=== PATIENT | female | born 1940 | race African-American/Black ===

== ENCOUNTER → 2019-05-12 | Outpatient (CLI) | payer MEDICARE ==
[2019-05-12 16:01] LABS: Urine Blood Negative /uL (Negative); Urine Specific Gravity 1.014 (1.001-1.035)
== END | disposition home or self-care (01) ==
LOC: LAB 12:40
PROVIDERS: ATTEND Internal Medicine Cardiovascular Disease
DX: N39.0 Urinary tract infection, site not specified (principal)
CPT/HCPCS: 81003; 87086; 87088; 87186

== ENCOUNTER → 2019-10-10 | Outpatient (CLI) | payer MEDICARE ==
[2019-10-10 16:48] LABS: Urine Blood TRACE /uL (Negative); Urine Specific Gravity 1.014 (1.001-1.035)
== END | disposition home or self-care (01) ==
LOC: LAB 13:07
PROVIDERS: ATTEND Internal Medicine Cardiovascular Disease
DX: N39.0 Urinary tract infection, site not specified (principal)
CPT/HCPCS: 81003; 87086

== ENCOUNTER → 2019-10-18 | Outpatient (CLI) | payer MEDICARE | END | disposition home or self-care (01) | LOC: LAB 10:33 | PROVIDERS: ATTEND Internal Medicine Cardiovascular Disease | DX: N39.0 Urinary tract infection, site not specified (principal) | CPT/HCPCS: 87086 ==

== ENCOUNTER 2020-01-20 17:45 | Inpatient (IN) | payer MEDICARE, MEDICAID ==
[~2020-01-20] VITALS: Ht 170.2 cm; Wt 76.7 kg
[2020-01-20] MEDS ORDERED: cloNIDine HCL 0.1 MG TAB PO ONE ×2 (18:00→18:45)
[2020-01-20 19:11] LABS: Albumin 3.7 g/dL (3.4-5.0); BUN/Creatinine Ratio 25.5; Calcium 8.7 mg/dL (8.5-10.1); Magnesium 1.5 mg/dL (1.6-2.6); Potassium 4.8 mmol/L (3.5-5.1)
[2020-01-20 19:16] LABS: Bilirubin, Total 0.2 mg/dL (0.2-1.0); Total Protein 8.1 g/dL (6.4-8.2)
[2020-01-20 19:25] LABS: Basophils # (auto) 0.1 10 ^3/uL (0-0.2); Basophils % (auto) 1.1 % (0.0-2.0); Eosinophils # (auto) 0.2 10 ^3/uL (0-0.8); Eosinophils % (auto) 1.7 % (0.0-7.0); Hematocrit 38.1 % (36.0-46.0); Hemoglobin 12.4 g/dL (12.2-16.2); Lymphocytes # (auto) 1.3 10 ^3/uL (0.4-5.4); Lymphocytes % (auto) 14.2 % (10.0-50.0); Mean Corpuscular Hgb Conc. 32.6 g/dL (32.0-36.0); Mean Corpuscular Volume 95.1 fL (80.0-100.0); Monocytes # (auto) 0.5 10 ^3/uL (0-1.3); Neutrophils # (auto) 6.8 10 ^3/uL (1.6-8.6); Nucleated Red Blood Cells % 0.1 %; Platelet Count (auto) 312 10^3/uL (140-450); Red Cell Distribution Width 14.1 % (11.8-14.3); White Blood Cell 8.9 10^3/uL (4.4-10.8)
[2020-01-20] MEDS ORDERED: ASPirin 81 mg TAB PO ONE (19:30)
[2020-01-20] MEDS ORDERED: CLOPIDOGREL BISULFATE 75 MG TAB PO ONE (19:30)
[2020-01-20 19:31] LABS: INR 0.99 (0.9-1.15); Partial Thromboplastin Time 31.3 sec (23.0-31.2)
[2020-01-20] MEDS ORDERED: MORPHINE SULF INJ 2 MG/ML SYRINGE 1ML IV PRN (21:15)
[2020-01-20] MEDS ORDERED: DOCUSATE CALCIUM 240 MG CAP PO PRN (21:15)
[2020-01-20] MEDS ORDERED: LORazepam 0.5 MG TAB PO PRN (21:15)
[2020-01-20] MEDS ORDERED: hydrALAZINE HCL 20 MG/ML VL IV PRN (21:15)
[2020-01-20] MEDS ORDERED: NITROGLYCERIN 0.4 MG SL TAB SL PRN (21:15)
[2020-01-20 21:24] LABS: Urine Bacteria NONE SEEN /hpf (None Seen); Urine Blood Negative /uL (Negative); Urine WBC 2 /hpf (0 - 5)
[2020-01-20 21:39] LABS: Amphetamine Screen, Urine NEGATIVE (NEGATIVE); Barbiturate Scree,Urine NEGATIVE (NEGATIVE); Benzodiazephine Screen, Urine NEGATIVE (NEGATIVE); Cannabinoid Screen, Urine NEGATIVE (NEGATIVE); Cocaine Screen, Urine NEGATIVE (NEGATIVE); Opiate Scree,Urine NEGATIVE (NEGATIVE); Phencyclidine Screen, Urine NEGATIVE (NEGATIVE)
[2020-01-20 21:45] LABS: Alcohol, Urine < 3.0 mg/dL (0-10)
[2020-01-21 05:54] LABS: Basophils # (auto) 0 10 ^3/uL (0-0.2); Basophils % (auto) 0.7 % (0.0-2.0); Eosinophils # (auto) 0.2 10 ^3/uL (0-0.8); Eosinophils % (auto) 2.4 % (0.0-7.0); Hematocrit 35.9 % (36.0-46.0); Hemoglobin 11.7 g/dL (12.2-16.2); Lymphocytes # (auto) 1.2 10 ^3/uL (0.4-5.4); Lymphocytes % (auto) 17.4 % (10.0-50.0); Mean Corpuscular Hgb Conc. 32.6 g/dL (32.0-36.0); Mean Corpuscular Volume 95.2 fL (80.0-100.0); Monocytes # (auto) 0.6 10 ^3/uL (0-1.3); Monocytes % (auto) 8.4 % (0.0-12.0); Neutrophils # (auto) 4.9 10 ^3/uL (1.6-8.6); Neutrophils % (auto) 71.1 % (37.0-80.0); Platelet Count (auto) 279 10^3/uL (140-450); Red Blood Cells 3.78 10^6/uL (4.0-5.20)
[2020-01-21 06:14] LABS: Potassium 4.4 mmol/L (3.5-5.1)
[2020-01-21 06:25] LABS: Albumin 3.4 g/dL (3.4-5.0); BUN/Creatinine Ratio 27.8; Bilirubin, Total 0.2 mg/dL (0.2-1.0); Calcium 8.8 mg/dL (8.5-10.1); Magnesium 1.8 mg/dL (1.6-2.6); Phosphorus 3.2 mg/dL (2.5-4.90); Total Protein 7.7 g/dL (6.4-8.2)
[2020-01-21 06:30] LABS: INR 1.02 (0.9-1.15); Partial Thromboplastin Time 30.5 sec (23.0-31.2)
[2020-01-21] MEDS ORDERED: PANTOPRAZOLE 40 MG TAB PO SCH ×2 (10:00)
[2020-01-21] MEDS ORDERED: LOSARTAN POTASSIUM 50 MG TAB PO SCH (16:00)
[2020-01-22] MEDS ORDERED: ONDANSETRON HCL 4 MG/2 ML VIAL IV ONE
[2020-01-22 06:46] VITALS: BP 183/80
[2020-01-22] MEDS ORDERED: AZILSARTAN PO SCH (10:00)
[2020-01-22] MEDS ORDERED: [UNRECOGNIZED DRUG - OTHER] PO SCH (10:00)
[2020-01-22] MEDS ORDERED: amLODIPine BESYLATE 5 MG TAB PO SCH (10:00)
[2020-01-22] MEDS ORDERED: DOXAZOSIN MESYL 2 MG TAB PO SCH (22:00)
== END 2020-01-22 08:29 | disposition left against medical advice (07) | DRG 281 ==
LOC: ER 17:45 → TELE 17:46
PROVIDERS: ADMIT Family Medicine; ATTEND Family Medicine
DX: I21.4 Non-ST elevation (NSTEMI) myocardial infarction (principal); I50.32 Chronic diastolic (congestive) heart failure; I13.0 Hypertensive heart and chronic kidney disease with heart failure and stage 1 through stage 4 chronic kidney disease, or unspecified chronic kidney disease; I16.0 Hypertensive urgency; E11.22 Type 2 diabetes mellitus with diabetic chronic kidney disease; E11.65 Type 2 diabetes mellitus with hyperglycemia; E03.9 Hypothyroidism, unspecified; N18.9 Chronic kidney disease, unspecified; Z53.29 Procedure and treatment not carried out because of patient's decision for other reasons; E87.5 Hyperkalemia; I70.0 Atherosclerosis of aorta; L81.6 Other disorders of diminished melanin formation; Z85.3 Personal history of malignant neoplasm of breast; Z98.51 Tubal ligation status; R51.9 Headache, unspecified
CPT/HCPCS: 36415; 70450; 71045; 80053; 80307; 81001; 82962; 83036; 83735; 83880; 84100; 84436; 84443; 84484; 85025; 85610; 85730; 93005; 96374; G0378; J2405

== ENCOUNTER 2020-06-21 12:10 | Inpatient (IN) | payer MEDICARE, MEDICAID ==
[~2020-06-21] VITALS: Ht 30.5 cm; Wt 72.0 kg
[2020-06-21 16:36] VITALS: BP 141/63
[2020-06-21 18:49] VITALS: BP 150/60
[2020-06-21] MEDS ORDERED: LABE100T4 PO ×2 (19:43)
[2020-06-21] MEDS ORDERED: GLIM4TAB42 PO (19:43)
[2020-06-21] MEDS ORDERED: NIFE90TA49 PO (19:43)
[2020-06-21] MEDS ORDERED: HYDR-4296 PO ×2 (19:46)
[2020-06-21] MEDS ORDERED: NITROGLYCERIN 0.4 MG SL TAB SL PRN (20:30)
[2020-06-21] MEDS ORDERED: MORPHINE SULF INJ 2 MG/ML SYRINGE 1ML IV PRN (20:30)
[2020-06-21] MEDS: SODIUM CHLORIDE 0.9% 1,000 ML IV SCH (20:49)
[2020-06-21 21:50] LABS: Basophils # (auto) 0 10 ^3/uL (0-0.2); Basophils % (auto) 0.1 % (0.0-2.0); Eosinophils # (auto) 0 10 ^3/uL (0-0.8); Eosinophils % (auto) 0.3 % (0.0-7.0); Hematocrit 26.3 % (36.0-46.0); Hemoglobin 8.8 g/dL (12.2-16.2); Lymphocytes # (auto) 0.6 10 ^3/uL (0.4-5.4); Lymphocytes % (auto) 4.5 % (10.0-50.0); Mean Corpuscular Hemoglobin 31.3 pg (28.0-32.0); Mean Corpuscular Hgb Conc. 33.4 g/dL (32.0-36.0); Mean Corpuscular Volume 93.8 fL (80.0-100.0); Monocytes # (auto) 0.6 10 ^3/uL (0-1.3); Monocytes % (auto) 4.6 % (0.0-12.0); Neutrophils # (auto) 12.5 10 ^3/uL (1.6-8.6); Neutrophils % (auto) 90.5 % (37.0-80.0); Platelet Count (auto) 285 10^3/uL (140-450); Red Cell Distribution Width 15.6 % (11.8-14.3); White Blood Cell 13.8 10^3/uL (4.4-10.8)
[2020-06-21 22:00] VITALS: BP 166/77
[2020-06-21] MEDS ORDERED: LABETALOL HCL 200 MG TAB PO SCH (22:00)
[2020-06-21] MEDS ORDERED: metroNIDAZOLE 500 MG TAB PO SCH (22:00)
[2020-06-21] MEDS ORDERED: hydrALAZINE HCL 25 MG TAB PO SCH (22:00)
[2020-06-21] MEDS ORDERED: GLIMEPIRIDE 2 MG TAB PO SCH (22:00)
[2020-06-21 22:06] LABS: Albumin 2.5 g/dL (3.4-5.0); Calcium 7.7 mg/dL (8.5-10.1); Potassium 3.2 mmol/L (3.5-5.1)
[2020-06-21 22:09] LABS: BUN/Creatinine Ratio 25.2; Bilirubin, Total 0.4 mg/dL (0.2-1.0); Total Protein 6.7 g/dL (6.4-8.2)
[2020-06-21 22:38] LABS: INR 1.01 (0.9-1.15); Partial Thromboplastin Time 28.5 sec (23.0-31.2)
[2020-06-22] VITALS (8 sets, daily range): BP systolic 136–181; BP diastolic 60–80
[2020-06-22] MEDS: cloNIDine 0.2 mg/24hr 7DAY PATCH TD SCH (04:26)
[2020-06-22] MEDS: metroNIDAZOLE 500MG/100ML 100 ML IV SCH ×3 (05:01→18:00)
[2020-06-22] MEDS: PIPERACILLIN-TAZO 4.5GM 100 ML IV SCH ×3 (06:01→22:15)
[2020-06-22] MEDS: SODIUM CHLORIDE 0.9% 1,000 ML IV SCH ×3 (09:26→20:49)
[2020-06-22] MEDS: NIFEdipine ER 30 MG TAB PO SCH (09:56)
[2020-06-22] MEDS: PANTOPRAZOLE 40 MG/10 ML VIAL INJ IV SCH (09:56)
[2020-06-22 10:19] LABS: Urine Bacteria MANY /hpf (None Seen); Urine Blood Negative /uL (Negative); Urine Budding Yeast LOADED /hpf (None Seen); Urine Specific Gravity 1.012 (1.001-1.035); Urine WBC 32 /hpf (0 - 5)
[2020-06-22] MEDS ORDERED: CHOLESTYRAMINE 4 GM POWDER PO SCH (11:00)
[2020-06-22] MEDS ORDERED: METOCLOPRAMIDE HCL 5MG/ml INJ 2ml VIAL IV PRN (11:45)
[2020-06-22] MEDS ORDERED: DEXTROSE (50%) 50ML SYRG IV PRN ×2 (12:00→15:45)
[2020-06-22] MEDS ORDERED: TPN PER PHARMACY 0 ML IV SCH (16:00)
[2020-06-22] MEDS ORDERED: InsuLIN REG 1unit/0.01ml Soln (100units/ml) SC SCH ×2 (17:00→22:00)
[2020-06-22] MEDS ORDERED: ACCU-CHEK COMFORT CURVE STRIP VI SCH (17:00)
[2020-06-22] MEDS: ACCU-CHEK COMFORT CURVE STRIP VI SCH ×2 (17:08→20:00)
[2020-06-22 17:31] LABS: Albumin 2.4 g/dL (3.4-5.0); Calcium 7.6 mg/dL (8.5-10.1); Magnesium 2.1 mg/dL (1.6-2.6); Potassium 3.2 mmol/L (3.5-5.1)
[2020-06-22 17:38] LABS: Bilirubin, Total 0.5 mg/dL (0.2-1.0); Phosphorus 2.1 mg/dL (2.5-4.90); Pre Albumin 15.8 mg/dL (20.0-40.0); Total Protein 6.5 g/dL (6.4-8.2)
[2020-06-22] MEDS: InsuLIN REG 1unit/0.01ml Soln (100units/ml) SC SCH ×2 (17:47→20:00)
[2020-06-22] MEDS ORDERED: POTASSIUM PHOSPHATE 44 MEQ in D5W 5% 250 ML IV ONE (18:00)
[2020-06-22] MEDS: AMINO ACID INFUSION IN D10W 1,000 ML IV NR (20:50)
[2020-06-22] MEDS ORDERED: OMNIPAQUE ORAL SOLN 500ml 12mg/ml PO ONE (22:29)
[2020-06-23] MEDS: metroNIDAZOLE 500MG/100ML 100 ML IV SCH ×5 (00:25→23:46)
[2020-06-23] MEDS: InsuLIN REG 1unit/0.01ml Soln (100units/ml) SC SCH ×7 (00:40→23:52)
[2020-06-23] MEDS: ACCU-CHEK COMFORT CURVE STRIP VI SCH ×7 (04:00→23:47)
[2020-06-23 04:59] VITALS: BP 147/56
[2020-06-23] MEDS: PIPERACILLIN-TAZO 4.5GM 100 ML IV SCH ×3 (05:23→21:49)
[2020-06-23 06:17] LABS: Albumin 2.2 g/dL (3.4-5.0); Calcium 7.3 mg/dL (8.5-10.1); Magnesium 1.8 mg/dL (1.6-2.6)
[2020-06-23 06:22] LABS: BUN/Creatinine Ratio 20.6; Bilirubin, Total 0.3 mg/dL (0.2-1.0); Phosphorus 1.8 mg/dL (2.5-4.90); Total Protein 5.9 g/dL (6.4-8.2)
[2020-06-23 06:27] LABS: Potassium 2.9 mmol/L (3.5-5.1)
[2020-06-23 08:00] VITALS: BP 137/50
[2020-06-23 08:30] VITALS: BP 137/50
[2020-06-23] MEDS: NIFEdipine ER 30 MG TAB PO SCH (09:53)
[2020-06-23] MEDS: PANTOPRAZOLE 40 MG/10 ML VIAL INJ IV SCH (09:55)
[2020-06-23] MEDS ORDERED: POTASSIUM CHL 20MEQ/100ML 100 ML IV ONE (11:00)
[2020-06-23] MEDS ORDERED: POTASSIUM CHL 20MEQ/100ML 100 ML IV SCH (11:15)
[2020-06-23] MEDS ORDERED: LIDOCAINE 1% (LOCAL ANESTH.) PF 5ml SDV ID ONE (11:30)
[2020-06-23] MEDS ORDERED: POTASSIUM PHOSPHATE 44 MEQ in D5W 5% 250 ML IV ONE (11:30)
[2020-06-23 12:30] VITALS: BP 145/59
[2020-06-23] MEDS ORDERED: LACTULOSE 20Gm/30ML SOLN PO ONE (12:30)
[2020-06-23 16:40] VITALS: BP 163/74
[2020-06-23] MEDS: AMINO ACID INFUSION IN D10W 1,000 ML IV NR (19:49)
[2020-06-23] MEDS ORDERED: TPN PER PHARMACY IV NR ×22 (20:00)
[2020-06-23] MEDS: SODIUM CHLORIDE 0.9% 1,000 ML IV SCH (20:00)
[2020-06-23] MEDS ORDERED: NIFEdipine ER 30 MG TAB PO ONE (21:15)
[2020-06-23] MEDS: SODIUM CHLOR 0.9% PF (SALINE LOCK) 10ML VIAL/SYR IV SCH (21:49)
[2020-06-23 22:00] VITALS: BP 183/71
[2020-06-24] MEDS: ACCU-CHEK COMFORT CURVE STRIP VI SCH ×6 (03:47→23:49)
[2020-06-24] MEDS: InsuLIN REG 1unit/0.01ml Soln (100units/ml) SC SCH ×6 (03:50→23:49)
[2020-06-24 05:14] VITALS: BP 169/76
[2020-06-24] MEDS: metroNIDAZOLE 500MG/100ML 100 ML IV SCH ×4 (05:28→23:49)
[2020-06-24] MEDS: PIPERACILLIN-TAZO 4.5GM 100 ML IV SCH ×3 (05:29→22:05)
[2020-06-24 05:36] LABS: Basophils # (auto) 0 10 ^3/uL (0-0.2); Lymphocytes # (auto) 0.8 10 ^3/uL (0.4-5.4); Neutrophils # (auto) 7.3 10 ^3/uL (1.6-8.6)
[2020-06-24 05:38] LABS: Basophils % (auto) 0.3 % (0.0-2.0); Eosinophils # (auto) 0.2 10 ^3/uL (0-0.8); Eosinophils % (auto) 1.8 % (0.0-7.0); Hematocrit 23.3 % (36.0-46.0); Hemoglobin 7.6 g/dL (12.2-16.2); Lymphocytes % (auto) 8.8 % (10.0-50.0); Mean Corpuscular Hemoglobin 33.4 pg (28.0-32.0); Mean Corpuscular Hgb Conc. 32.6 g/dL (32.0-36.0); Mean Corpuscular Volume 102.4 fL (80.0-100.0); Monocytes # (auto) 0.4 10 ^3/uL (0-1.3); Monocytes % (auto) 4.9 % (0.0-12.0); Neutrophils % (auto) 84.2 % (37.0-80.0); Platelet Count (auto) 228 10^3/uL (140-450); Red Blood Cells 2.27 10^6/uL (4.0-5.20); Red Cell Distribution Width 17.1 % (11.8-14.3); White Blood Cell 8.7 10^3/uL (4.4-10.8)
[2020-06-24 07:30] LABS: Magnesium 1.5 mg/dL (1.6-2.6)
[2020-06-24 07:34] LABS: Phosphorus 3.4 mg/dL (2.5-4.90)
[2020-06-24 07:35] LABS: Potassium 3.3 mmol/L (3.5-5.1)
[2020-06-24 07:36] LABS: Albumin 2.1 g/dL (3.4-5.0); BUN/Creatinine Ratio 18.6; Bilirubin, Total 0.3 mg/dL (0.2-1.0); Calcium 7.1 mg/dL (8.5-10.1); Total Protein 5.8 g/dL (6.4-8.2)
[2020-06-24 08:40] VITALS: BP 158/59
[2020-06-24] MEDS: SODIUM CHLOR 0.9% PF (SALINE LOCK) 10ML VIAL/SYR IV SCH ×2 (10:29→22:05)
[2020-06-24] MEDS: NIFEdipine ER 30 MG TAB PO SCH (10:30)
[2020-06-24] MEDS: PANTOPRAZOLE 40 MG/10 ML VIAL INJ IV SCH (10:30)
[2020-06-24] MEDS ORDERED: MAGNESIUM SULFATE 1GM/100ML 100 ML IV ONE (11:30)
[2020-06-24] MEDS ORDERED: POTASSIUM CHL 20MEQ/100ML 100 ML IV ONE (11:30)
[2020-06-24 12:30] VITALS: BP 165/83
[2020-06-24 16:40] VITALS: BP 146/57
[2020-06-24] MEDS ORDERED: TPN PER PHARMACY IV NR ×10 (20:00)
[2020-06-24] MEDS: SODIUM CHLORIDE 0.9% 1,000 ML IV SCH (20:09)
[2020-06-24 21:42] VITALS: BP 147/97
[2020-06-25] MEDS: ACCU-CHEK COMFORT CURVE STRIP VI SCH ×5 (04:15→19:56)
[2020-06-25] MEDS: InsuLIN REG 1unit/0.01ml Soln (100units/ml) SC SCH ×5 (04:17→20:00)
[2020-06-25 05:00] VITALS: BP 147/62
[2020-06-25] MEDS: metroNIDAZOLE 500MG/100ML 100 ML IV SCH ×2 (05:35→11:48)
[2020-06-25 05:39] LABS: Potassium 3.3 mmol/L (3.5-5.1)
[2020-06-25 05:47] LABS: Albumin 2.1 g/dL (3.4-5.0); BUN/Creatinine Ratio 19.8; Bilirubin, Total 0.2 mg/dL (0.2-1.0); Calcium 7.1 mg/dL (8.5-10.1); Magnesium 1.7 mg/dL (1.6-2.6); Phosphorus 1.8 mg/dL (2.5-4.90); Total Protein 5.9 g/dL (6.4-8.2)
[2020-06-25] MEDS: PIPERACILLIN-TAZO 4.5GM 100 ML IV SCH ×2 (06:00→14:18)
[2020-06-25 08:29] VITALS: BP 163/80
[2020-06-25] MEDS: SODIUM CHLOR 0.9% PF (SALINE LOCK) 10ML VIAL/SYR IV SCH ×2 (10:24→21:48)
[2020-06-25] MEDS: PANTOPRAZOLE 40 MG/10 ML VIAL INJ IV SCH (10:51)
[2020-06-25] MEDS: NIFEdipine ER 30 MG TAB PO SCH (10:51)
[2020-06-25 12:32] VITALS: BP 162/80
[2020-06-25] MEDS ORDERED: POTASSIUM PHOSPHATE 44 MEQ in D5W 5% 250 ML IV ONE (13:15)
[2020-06-25] MEDS ORDERED: MAGNESIUM SULFATE 1GM/100ML 100 ML IV ONE (13:15)
[2020-06-25] MEDS ORDERED: CHOLESTYRAMINE 4 GM POWDER PO ONE (16:45)
[2020-06-25] MEDS: POTASSIUM CHL 20MEQ/100ML 100 ML IV SCH ×3 (17:06→21:48)
[2020-06-25 17:30] VITALS: BP 161/69
[2020-06-25] MEDS: SODIUM CHLORIDE 0.9% 1,000 ML IV SCH (19:55)
[2020-06-25] MEDS ORDERED: TPN PER PHARMACY IV NR ×10 (20:00)
[2020-06-25 22:00] VITALS: BP 161/75
[2020-06-25] MEDS: CHOLESTYRAMINE 4 GM POWDER PO SCH (23:11)
[2020-06-26] MEDS: InsuLIN REG 1unit/0.01ml Soln (100units/ml) SC SCH ×6 (04:00→21:14)
[2020-06-26] MEDS: ACCU-CHEK COMFORT CURVE STRIP VI SCH ×6 (04:11→21:10)
[2020-06-26 05:00] VITALS: BP 156/74
[2020-06-26 05:52] LABS: Basophils # (auto) 0 10 ^3/uL (0-0.2); Basophils % (auto) 0.3 % (0.0-2.0); Eosinophils # (auto) 0.2 10 ^3/uL (0-0.8); Eosinophils % (auto) 2.2 % (0.0-7.0); Hematocrit 23.4 % (36.0-46.0); Hemoglobin 7.8 g/dL (12.2-16.2); Lymphocytes # (auto) 0.8 10 ^3/uL (0.4-5.4); Mean Corpuscular Hemoglobin 31.2 pg (28.0-32.0); Mean Corpuscular Hgb Conc. 33.4 g/dL (32.0-36.0); Mean Corpuscular Volume 93.4 fL (80.0-100.0); Monocytes # (auto) 0.6 10 ^3/uL (0-1.3); Monocytes % (auto) 5.8 % (0.0-12.0); Neutrophils # (auto) 8.4 10 ^3/uL (1.6-8.6); Neutrophils % (auto) 83.7 % (37.0-80.0); Platelet Count (auto) 253 10^3/uL (140-450); Red Blood Cells 2.51 10^6/uL (4.0-5.20); Red Cell Distribution Width 15.7 % (11.8-14.3); White Blood Cell 10.1 10^3/uL (4.4-10.8)
[2020-06-26 06:15] LABS: Albumin 2.1 g/dL (3.4-5.0); Calcium 7.4 mg/dL (8.5-10.1); Magnesium 2.1 mg/dL (1.6-2.6); Potassium 4.6 mmol/L (3.5-5.1)
[2020-06-26 06:19] LABS: Bilirubin, Total 0.2 mg/dL (0.2-1.0); Phosphorus 1.8 mg/dL (2.5-4.90); Total Protein 5.9 g/dL (6.4-8.2)
[2020-06-26 08:58] VITALS: BP 161/75
[2020-06-26] MEDS: SODIUM CHLOR 0.9% PF (SALINE LOCK) 10ML VIAL/SYR IV SCH ×2 (10:00→21:10)
[2020-06-26] MEDS: PANTOPRAZOLE 40 MG/10 ML VIAL INJ IV SCH (10:00)
[2020-06-26] MEDS: NIFEdipine ER 30 MG TAB PO SCH (10:00)
[2020-06-26] MEDS ORDERED: SODIUM PHOSP 40 MEQ in D5W 5% 250 ML IV ONE (10:30)
[2020-06-26] MEDS: CHOLESTYRAMINE 4 GM POWDER PO SCH ×2 (11:00→23:00)
[2020-06-26 12:32] VITALS: BP 151/80
[2020-06-26 16:28] VITALS: BP 166/80
[2020-06-26] MEDS: SODIUM CHLORIDE 0.9% 1,000 ML IV SCH (20:00)
[2020-06-26] MEDS ORDERED: DEXTROSE (50%) 50ML SYRG IV PRN (21:00)
[2020-06-26] MEDS: SACUBITRIL-VALSARTAN 24mg/26mg TAB PO SCH (21:10)
[2020-06-26 21:54] VITALS: BP 144/67
[2020-06-27 05:25] VITALS: BP 147/70
[2020-06-27] MEDS: ACCU-CHEK COMFORT CURVE STRIP VI SCH ×4 (06:10→22:00)
[2020-06-27] MEDS: InsuLIN REG 1unit/0.01ml Soln (100units/ml) SC SCH ×4 (06:10→22:47)
[2020-06-27 06:22] LABS: BUN/Creatinine Ratio 32.2; Calcium 7.5 mg/dL (8.5-10.1); Magnesium 1.9 mg/dL (1.6-2.6); Phosphorus 3.1 mg/dL (2.5-4.90); Potassium 4.4 mmol/L (3.5-5.1)
[2020-06-27 08:43] VITALS: BP 156/78
[2020-06-27] MEDS: SODIUM CHLOR 0.9% PF (SALINE LOCK) 10ML VIAL/SYR IV SCH ×2 (09:41→22:00)
[2020-06-27] MEDS: PANTOPRAZOLE 40 MG/10 ML VIAL INJ IV SCH (09:41)
[2020-06-27] MEDS: SACUBITRIL-VALSARTAN 24mg/26mg TAB PO SCH ×2 (09:42→21:46)
[2020-06-27] MEDS: NIFEdipine ER 30 MG TAB PO SCH (09:42)
[2020-06-27] MEDS: CHOLESTYRAMINE 4 GM POWDER PO SCH ×2 (11:22→23:02)
[2020-06-27 13:00] VITALS: BP 155/77
[2020-06-27 16:58] VITALS: BP 157/69
[2020-06-27 20:00] VITALS: BP 157/72
[2020-06-27] MEDS: SODIUM CHLORIDE 0.9% 1,000 ML IV SCH (20:00)
[2020-06-27 22:00] VITALS: BP 157/72
[2020-06-28 05:00] VITALS: BP 156/72
[2020-06-28] MEDS: ACCU-CHEK COMFORT CURVE STRIP VI SCH ×4 (06:36→22:02)
[2020-06-28] MEDS: InsuLIN REG 1unit/0.01ml Soln (100units/ml) SC SCH ×4 (06:38→22:00)
[2020-06-28 08:00] VITALS: BP 160/80
[2020-06-28 08:03] VITALS: BP 160/80
[2020-06-28] MEDS: PANTOPRAZOLE 40 MG/10 ML VIAL INJ IV SCH (09:52)
[2020-06-28] MEDS: SODIUM CHLOR 0.9% PF (SALINE LOCK) 10ML VIAL/SYR IV SCH ×2 (09:53→22:03)
[2020-06-28] MEDS: NIFEdipine ER 30 MG TAB PO SCH (09:53)
[2020-06-28] MEDS: SACUBITRIL-VALSARTAN 24mg/26mg TAB PO SCH ×2 (09:53→21:57)
[2020-06-28] MEDS: CHOLESTYRAMINE 4 GM POWDER PO SCH ×2 (11:29→22:02)
[2020-06-28 12:33] VITALS: BP 157/81
[2020-06-28 17:00] VITALS: BP 151/74
[2020-06-28 21:28] VITALS: BP 161/72
[2020-06-28] MEDS: SODIUM CHLORIDE 0.9% 1,000 ML IV SCH (22:04)
[2020-06-29] MEDS: cloNIDine 0.2 mg/24hr 7DAY PATCH TD SCH (03:35)
[2020-06-29 05:00] VITALS: BP 155/72
[2020-06-29] MEDS: ACCU-CHEK COMFORT CURVE STRIP VI SCH ×3 (06:30→17:42)
[2020-06-29] MEDS: InsuLIN REG 1unit/0.01ml Soln (100units/ml) SC SCH ×4 (06:30→23:01)
[2020-06-29 09:00] VITALS: BP 161/77
[2020-06-29] MEDS: SODIUM CHLOR 0.9% PF (SALINE LOCK) 10ML VIAL/SYR IV SCH ×2 (10:24→22:59)
[2020-06-29] MEDS: SACUBITRIL-VALSARTAN 24mg/26mg TAB PO SCH ×2 (10:24→23:00)
[2020-06-29] MEDS: PANTOPRAZOLE 40 MG/10 ML VIAL INJ IV SCH (10:24)
[2020-06-29] MEDS: NIFEdipine ER 30 MG TAB PO SCH (10:25)
[2020-06-29] MEDS: CHOLESTYRAMINE 4 GM POWDER PO SCH (11:57)
[2020-06-29 13:00] VITALS: BP 160/99
[2020-06-29 17:00] VITALS: BP 153/76
[2020-06-29 20:00] VITALS: BP 152/73
[2020-06-29 22:16] VITALS: BP 152/73
[2020-06-29] MEDS: SODIUM CHLORIDE 0.9% 1,000 ML IV SCH (22:59)
[2020-06-30] MEDS: CHOLESTYRAMINE 4 GM POWDER PO SCH ×3 (00:01→23:26)
[2020-06-30] MEDS: ACCU-CHEK COMFORT CURVE STRIP VI SCH ×5 (00:01→21:25)
[2020-06-30] MEDS: InsuLIN REG 1unit/0.01ml Soln (100units/ml) SC SCH ×5 (00:04→21:31)
[2020-06-30 05:36] VITALS: BP 158/51
[2020-06-30 09:00] VITALS: BP 160/78
[2020-06-30] MEDS: SODIUM CHLOR 0.9% PF (SALINE LOCK) 10ML VIAL/SYR IV SCH ×2 (11:39→23:27)
[2020-06-30] MEDS: PANTOPRAZOLE 40 MG/10 ML VIAL INJ IV SCH (11:39)
[2020-06-30] MEDS: NIFEdipine ER 30 MG TAB PO SCH (11:40)
[2020-06-30] MEDS: SACUBITRIL-VALSARTAN 24mg/26mg TAB PO SCH ×2 (11:40→23:26)
[2020-06-30 13:00] VITALS: BP 158/81
[2020-06-30 17:00] VITALS: BP 151/70
[2020-06-30 20:00] VITALS: BP 152/73
[2020-06-30 22:00] VITALS: BP 154/69
[2020-06-30] MEDS: SODIUM CHLORIDE 0.9% 1,000 ML IV SCH (23:27)
[2020-07-01 05:10] VITALS: BP 151/47
[2020-07-01] MEDS: ACCU-CHEK COMFORT CURVE STRIP VI SCH ×4 (06:20→22:11)
[2020-07-01] MEDS: InsuLIN REG 1unit/0.01ml Soln (100units/ml) SC SCH ×4 (06:20→22:12)
[2020-07-01 09:00] VITALS: BP 176/77
[2020-07-01] MEDS: SACUBITRIL-VALSARTAN 24mg/26mg TAB PO SCH ×2 (10:23→22:12)
[2020-07-01] MEDS: PANTOPRAZOLE 40 MG/10 ML VIAL INJ IV SCH (10:23)
[2020-07-01] MEDS: NIFEdipine ER 30 MG TAB PO SCH (10:24)
[2020-07-01] MEDS: SODIUM CHLOR 0.9% PF (SALINE LOCK) 10ML VIAL/SYR IV SCH ×2 (10:24→22:15)
[2020-07-01] MEDS: CHOLESTYRAMINE 4 GM POWDER PO SCH ×2 (12:10→22:11)
[2020-07-01 13:00] VITALS: BP 157/77
[2020-07-01 17:15] VITALS: BP 145/75
[2020-07-01 22:00] VITALS: BP 165/81
[2020-07-01] MEDS: SODIUM CHLORIDE 0.9% 1,000 ML IV SCH (22:15)
[2020-07-02 05:00] VITALS: BP 165/115
[2020-07-02] MEDS: ACCU-CHEK COMFORT CURVE STRIP VI SCH ×4 (06:09→21:36)
[2020-07-02] MEDS: InsuLIN REG 1unit/0.01ml Soln (100units/ml) SC SCH ×4 (06:09→21:53)
[2020-07-02] MEDS: SACUBITRIL-VALSARTAN 24mg/26mg TAB PO SCH ×2 (09:17→21:36)
[2020-07-02] MEDS: PANTOPRAZOLE 40 MG/10 ML VIAL INJ IV SCH (09:17)
[2020-07-02] MEDS: NIFEdipine ER 30 MG TAB PO SCH (09:19)
[2020-07-02 09:21] VITALS: BP 162/79
[2020-07-02] MEDS: SODIUM CHLOR 0.9% PF (SALINE LOCK) 10ML VIAL/SYR IV SCH ×2 (10:00→21:36)
[2020-07-02] MEDS: CHOLESTYRAMINE 4 GM POWDER PO SCH ×2 (12:19→23:23)
[2020-07-02 13:00] VITALS: BP 144/77
[2020-07-02 17:00] VITALS: BP 144/72
[2020-07-02] MEDS: SODIUM CHLORIDE 0.9% 1,000 ML IV SCH (20:00)
[2020-07-02 22:00] VITALS: BP 154/83
[2020-07-03 05:00] VITALS: BP_SYST 118; BP_SYST 156; BP_DIAS 54; BP_DIAS 76
[2020-07-03] MEDS: ACCU-CHEK COMFORT CURVE STRIP VI SCH ×3 (06:42→17:00)
[2020-07-03] MEDS: InsuLIN REG 1unit/0.01ml Soln (100units/ml) SC SCH ×3 (06:42→17:06)
[2020-07-03 08:58] VITALS: BP 144/80
[2020-07-03] MEDS: PANTOPRAZOLE 40 MG/10 ML VIAL INJ IV SCH (10:21)
[2020-07-03] MEDS: CHOLESTYRAMINE 4 GM POWDER PO SCH (10:21)
[2020-07-03] MEDS: NIFEdipine ER 30 MG TAB PO SCH (10:21)
[2020-07-03] MEDS: SODIUM CHLOR 0.9% PF (SALINE LOCK) 10ML VIAL/SYR IV SCH (10:21)
[2020-07-03] MEDS: SACUBITRIL-VALSARTAN 24mg/26mg TAB PO SCH (10:21)
[2020-07-03 12:36] VITALS: BP 166/79
== END 2020-07-03 21:09 | DRG 391 ==
LOC: TELE-WESTW 13:59
PROVIDERS: ADMIT Internal Medicine Cardiovascular Disease; ATTEND Internal Medicine Cardiovascular Disease
PROC: 05H433Z Insertion of Infusion Device into Left Innominate Vein, Percutaneous Approach (ICD-10-PCS; 2020-06-23)
PROC: 3E0336Z Introduction of Nutritional Substance into Peripheral Vein, Percutaneous Approach (ICD-10-PCS; principal; 2020-06-26)
DX: K57.00 Diverticulitis of small intestine with perforation and abscess without bleeding (principal); K65.9 Peritonitis, unspecified; N39.0 Urinary tract infection, site not specified; J96.10 Chronic respiratory failure, unspecified whether with hypoxia or hypercapnia; I16.0 Hypertensive urgency; N18.9 Chronic kidney disease, unspecified; K21.9 Gastro-esophageal reflux disease without esophagitis; E87.6 Hypokalemia; D25.9 Leiomyoma of uterus, unspecified; K80.20 Calculus of gallbladder without cholecystitis without obstruction; D64.9 Anemia, unspecified; E78.5 Hyperlipidemia, unspecified; E03.9 Hypothyroidism, unspecified; E11.22 Type 2 diabetes mellitus with diabetic chronic kidney disease; E11.40 Type 2 diabetes mellitus with diabetic neuropathy, unspecified; I12.9 Hypertensive chronic kidney disease with stage 1 through stage 4 chronic kidney disease, or unspecified chronic kidney disease; N81.9 Female genital prolapse, unspecified; Z80.8 Family history of malignant neoplasm of other organs or systems; Z82.49 Family history of ischemic heart disease and other diseases of the circulatory system; Z83.3 Family history of diabetes mellitus; Z86.73 Personal history of transient ischemic attack (TIA), and cerebral infarction without residual deficits; M06.9 Rheumatoid arthritis, unspecified; Z20.822 Contact with and (suspected) exposure to COVID-19; Z88.8 Allergy status to other drugs, medicaments and biological substances
CPT/HCPCS: 36415; 36569; 71045; 74176; 80048; 80053; 81001; 82040; 82378; 82962; 83735; 84100; 84478; 85025; 85610; 85730; 87045; 87081; 87426; 87427; 87493; 93005; 97110; 97116; 97530; C9113; G0378; J1815; J2543; J3480; J3490; J7060

== ENCOUNTER 2021-08-29 07:52 | Inpatient (IN) | payer MEDICARE, MEDICAID ==
[~2021-08-29] VITALS: Ht 170.2 cm; Wt 71.0 kg
[~2021-08-29 07:52] MED LIST: ATOR20TA50 PO; CHOL20007 PO; CHOLPOW4 PO; CLON0.1T PO; GLIM4TAB42 PO; GLIP5TAB12 PO; LEVO50TA66 PO; NATE120T5 PO; NIFE90TA49 PO; OME20T PO; PATI1POW PO; SACU1TAB4 PO; TRIA75TA55 PO
[2021-08-29] MEDS ORDERED: IOHEXOL 350 MG/ML 100ML IJ ONE (09:01)
[2021-08-29] MEDS ORDERED: LIDOCAINE 2%HCL (LOCAL ANESTH.) INJ 10ml MDV ONE (09:01)
[2021-08-29] MEDS ORDERED: fentaNYL CITRATE 100 MCG/2 ML VL ONE (09:05)
[2021-08-29] MEDS ORDERED: ANGIOMAX 250 MG VIAL IV ONE (09:05)
[2021-08-29] MEDS ORDERED: SODIUM CHL 0.9% 50 ML ONE (09:06)
[2021-08-29] MEDS ORDERED: MIDAZOLAM HCL 2MG/2ML 2ml VIAL (1mg/ml) ONE (09:06)
[2021-08-29] MEDS ORDERED: diphenhdrAMINE HCL 50 MG/1 ML VL ONE (09:10)
[2021-08-29] MEDS ORDERED: FAMOTIDINE (10MG/ML) 2ML VL IV ONE (09:10)
[2021-08-29] MEDS ORDERED: methylPREDNISolone SOD SUCC 125 MG/2 ML VL ONE (09:10)
[2021-08-29] MEDS ORDERED: NITROGLYCERIN 0.4MG/DOSE SPRAY 4.9GM ONE (09:28)
[2021-08-29] MEDS ORDERED: VERAPAMIL 2.5MG/ML INJ 2ML VIAL IV ONE (09:36)
[2021-08-29] MEDS ORDERED: CLOPIDOGREL 300 MG TAB ONE (10:40)
[2021-08-29] MEDS ORDERED: ACETAMINOPHEN 500 MG TAB PO PRN (11:45)
[2021-08-29] MEDS ORDERED: HYDROcodone-ACET 5/325MG TAB PO PRN (11:45)
[2021-08-29] MEDS ORDERED: MORPHINE SULFATE INJ 2 MG/ml SYRG IV PRN (11:45)
[2021-08-29] MEDS ORDERED: NITROGLYCERIN 0.4 MG SL TAB SL PRN (11:45)
[2021-08-29] MEDS: LEVOTHYROXINE SODIUM 50 MCG TAB PO SCH (12:24)
[2021-08-29] MEDS: cloNIDine HCL 0.1 MG TAB PO PRN (12:24)
[2021-08-29 13:50] VITALS: BP 145/88
[2021-08-29] MEDS ORDERED: DEXTROSE (50%) 50ML SYRG IV PRN (14:00)
[2021-08-29] MEDS ORDERED: OMEP-335 PO (14:34)
[2021-08-29] MEDS ORDERED: NIFE90TA49 PO (14:34)
[2021-08-29 16:07] VITALS: BP 145/88
[2021-08-29] MEDS: ATORVASTATIN 20 MG TAB PO SCH (16:55)
[2021-08-29] MEDS: ACCU-CHEK COMFORT CURVE STRIP VI SCH ×2 (16:55→22:13)
[2021-08-29] MEDS: InsuLIN REG 1unit/0.01ml Soln (100units/ml) SC SCH (16:55)
[2021-08-29 17:00] VITALS: BP 167/69
[2021-08-29 18:15] VITALS: BP 154/69
[2021-08-29 22:00] VITALS: BP 160/68
[2021-08-29] MEDS ORDERED: InsuLIN REG 1unit/0.01ml Soln (100units/ml) SC SCH (22:00)
[2021-08-30] MEDS: cloNIDine HCL 0.1 MG TAB PO PRN ×2 (03:53→12:44)
[2021-08-30 05:00] VITALS: BP 181/77
[2021-08-30] MEDS: LEVOTHYROXINE SODIUM 50 MCG TAB PO SCH (06:11)
[2021-08-30] MEDS: ACCU-CHEK COMFORT CURVE STRIP VI SCH ×3 (06:23→17:54)
[2021-08-30] MEDS: InsuLIN REG 1unit/0.01ml Soln (100units/ml) SC SCH ×3 (06:23→17:00)
[2021-08-30 09:00] VITALS: BP 133/54
[2021-08-30] MEDS ORDERED: CLOPIDOGREL BISULFATE 75 MG TAB PO SCH (10:00)
[2021-08-30] MEDS ORDERED: NIFEdipine ER 30 MG TAB PO SCH (10:00)
[2021-08-30 13:00] VITALS: BP 166/59
[2021-08-30 16:49] VITALS: BP 145/60
[2021-08-30] MEDS: ATORVASTATIN 20 MG TAB PO SCH (17:54)
[2021-08-30 18:51] VITALS: BP 145/60
== END 2021-08-30 20:00 | disposition home or self-care (01) | DRG 272 ==
LOC: CATH 07:52 → TELE 11:39 → TELE-EAST 14:49
PROVIDERS: ADMIT Internal Medicine Cardiovascular Disease; ATTEND Internal Medicine Cardiovascular Disease
PROC: 04CK3ZZ Extirpation of Matter from Right Femoral Artery, Percutaneous Approach (ICD-10-PCS; principal; 2021-08-29)
PROC: 047K3Z1 Dilation of Right Femoral Artery using Drug-Coated Balloon, Percutaneous Approach (ICD-10-PCS; 2021-08-29)
PROC: 047A3DZ Dilation of Left Renal Artery with Intraluminal Device, Percutaneous Approach (ICD-10-PCS; 2021-08-29)
PROC: B41G1ZZ Fluoroscopy of Left Lower Extremity Arteries using Low Osmolar Contrast (ICD-10-PCS; 2021-08-29)
PROC: B41F1ZZ Fluoroscopy of Right Lower Extremity Arteries using Low Osmolar Contrast (ICD-10-PCS; 2021-08-29)
PROC: B447ZZ3 Ultrasonography of Left Renal Artery, Intravascular (ICD-10-PCS; 2021-08-29)
PROC: B4181ZZ Fluoroscopy of Bilateral Renal Arteries using Low Osmolar Contrast (ICD-10-PCS; 2021-08-29)
DX: I73.9 Peripheral vascular disease, unspecified (principal); I10 Essential (primary) hypertension; Z79.02 Long term (current) use of antithrombotics/antiplatelets; Z20.822 Contact with and (suspected) exposure to COVID-19; Z88.8 Allergy status to other drugs, medicaments and biological substances; Z91.041 Radiographic dye allergy status
CPT/HCPCS: 36252; 36415; 37225; 37236; 37252; 75710; 82565; 82962; 84520; 99152; 99153; C1724; G0378; J1815; J2001; J2250; J3490